=== PATIENT | male | born 1985 ===

== ENCOUNTER 2017-08-02 10:43 | Emergency (ER) | payer OTHER ==
[2017-08-02 10:54] VITALS: BMI 27.7
[2017-08-02 10:55] VITALS: TEMP 98.4
[2017-08-02] MEDS ORDERED: Naproxen 550 mg Tab PO STA (12:25)
[2017-08-02] MEDS ORDERED: Naproxen 550 mg Tab PO ONE (12:33)
--- NOTE | 2017-08-02 12:57 | C.PDOC ---
Time Seen by Provider: 08/02/17 11:57 Chief Complaint (Nursing): Back Pain Past Medical History Reviewed: Historical Data, Nursing Documentation, Vital Signs Vital Signs: Last Vital Signs Temp 98.4 F 08/02/17 10:54 Pulse 73 08/02/17 10:54 Resp 18 08/02/17 10:54 BP 138/74 08/02/17 10:54 Pulse Ox 99 08/02/17 10:54 Family History: States: No Known Family Hx - Social History Hx Alcohol Use: No Hx Substance Use: No - Immunization History Hx Tetanus Toxoid Vaccination: No Hx Influenza Vaccination: No ED Course And Treatment O2 Sat by Pulse Oximetry: 99 Disposition - Disposition - Scribe Statement The provider has reviewed the documentation as recorded by the Scribe (Esther Maria) All medical record entries made by the Scribe were at my direction and personally dictated by me. I have reviewed the chart and agree that the record accurately reflects my personal performance of the history, physical exam, medical decision making, and the department course for this patient. I have also personally directed, reviewed, and agree with the discharge instructions and disposition.
--- NOTE | 2017-08-02 13:01 | C.PDOC ---
History Of Present Illness 31-year-old male, presents to the emergency department with complaints of back and chest pain over the past 2-3 days. Patient reports that he is also experiencing productive blood-tinged cough over the past week. Patients brother notes that he works at a [employer] and lifts heavy objects all day. Denies numbness/weakness, nausea/vomiting, fevers, travel or any other associated symptoms. Time Seen by Provider: 08/02/17 11:57 Chief Complaint (Nursing): Back Pain History Per: Patient History/Exam Limitations: no limitations Onset/Duration Of Symptoms: Intermittent Episodes Current Symptoms Are (Timing): Still Present Recent travel outside of the [place]: No Past Medical History Reviewed: Historical Data, Nursing Documentation, Vital Signs Vital Signs: Last Vital Signs Temp 98.4 F 08/02/17 10:54 Pulse 64 08/02/17 14:07 Resp 16 08/02/17 14:07 BP 115/73 08/02/17 14:07 Pulse Ox 100 08/02/17 14:07 - Medical History PMH: No Chronic Diseases Family History: States: No Known Family Hx - Social History Hx Alcohol Use: No Hx Substance Use: No - Immunization History Hx Tetanus Toxoid Vaccination: No Hx Influenza Vaccination: No Review Of Systems Except As Marked, All Systems Reviewed And Found Negative. Constitutional: Negative for: Fever, Chills, Weakness, Weight loss Cardiovascular: Positive for: Chest Pain Respiratory: Positive for: Cough, Sputum Gastrointestinal: Negative for: Nausea, Vomiting, Abdominal Pain Musculoskeletal: Positive for: Back Pain Neurological: Negative for: Weakness, Numbness, Headache, Dizziness Physical Exam - Physical Exam Appears: Well, Non-toxic, No Acute Distress Skin: Normal Color, Warm, Dry, No Rash Head: Atraumatic, Normacephalic Eye(s): bilateral: Normal Inspection, PERRL, EOMI Nose: Normal Oral Mucosa: Moist Lips: Normal Appearing Throat: No Erythema, No Exudate Neck: Normal ROM, Supple Chest: Symmetrical, No Tenderness, No Ecchymosis, No Subcutaneous Emphysema Cardiovascular: Rhythm Regular, No Friction Rub, No Murmur Respiratory: Normal Breath Sounds, No Accessory Muscle Use, No Rales, No Rhonchi , No Wheezing Gastrointestinal/Abdominal: Soft, No Tenderness, No Guarding, No Rebound Back: Normal Inspection, No CVA Tenderness Extremity: Normal ROM, No Swelling Neurological/Psych: Oriented x3, Normal Speech, Normal Motor Gait: Steady ED Course And Treatment O2 Sat by Pulse Oximetry: 99 (RA) Pulse Ox Interpretation: Normal Medical Decision Making Medical Decision Making: Plan: * Chest X-Ray * Naproxen, Flexeril * XR LS Spine * Reassess and Disposition CXR is negative with no signs of TB or PTX. On re-exam, the patient reports improvement of symptoms. Lungs are CTA, heart is RRR, abdomen is soft, non-tender and is tolerating PO well. Ambulatory in the ED with steady gait. Follow up with the medical doctor within 1-2 days without fail. Return if worsened. Disposition - Disposition Referrals: [facility] [Outside] Disposition: HOME/ ROUTINE Disposition Time: 13:52 Condition: GOOD Additional Instructions: Follow up with the medical doctor within 1-2 days without fail. Return if worsened. Prescriptions: Cyclobenzaprine [Cyclobenzaprine HCl] 10 mg PO BID #14 tab Naproxen [Naprosyn] 500 mg PO BID #20 tab predniSONE [Prednisone] 20 mg PO BID #10 tab Instructions: Muscle Spasms (DC) Forms: [facility] [facility] (Thai), Work Excuse Print Language: VIETNAMESE - Clinical Impression Clinical Impression: Cough with hemoptysis, Back spasm - Scribe Statement The provider has reviewed the documentation as recorded by the Scribe (Esther Maria) All medical record entries made by the Scribe were at my direction and personally dictated by me. I have reviewed the chart and agree that the record accurately reflects my personal performance of the history, physical exam, medical decision making, and the department course for this patient. I have also personally directed, reviewed, and agree with the discharge instructions and disposition.
--- NOTE | 2017-08-02 13:03 | RAD ---
HISTORY: cough up blood COMPARISON: None available. TECHNIQUE: Chest PA and lateral FINDINGS: LUNGS: No focal consolidation. Please note that chest x-ray has limited sensitivity for the detection of pulmonary masses. PLEURA: No significant pleural effusion identified. No definite pneumothorax . CARDIOVASCULAR: Heart size appears within normal limits. OSSEOUS STRUCTURES: No acute osseous abnormality identified. VISUALIZED UPPER ABDOMEN: Unremarkable. OTHER FINDINGS: None. IMPRESSION: No focal consolidation identified.
--- NOTE | 2017-08-02 13:06 | RAD ---
PROCEDURE: Radiographs of the Lumbar Spine. HISTORY: low back pain COMPARISON: None available. FINDINGS: BONES: Alignment appears satisfactory. No listhesis. No acute displaced fracture identified. DISC SPACES: Unremarkable. OTHER FINDINGS: Nonspecific bowel gas pattern. IMPRESSION: No acute displaced fracture or subluxation identified. Nonspecific bowel-gas pattern.
[2017-08-02 14:08] VITALS: BP 115/73; PULSE 64; RESP 16
[2017-08-04 05:42] VITALS: O2SAT 99
== END 2017-08-02 14:08 | disposition home or self-care (01) ==
LOC: C.ER 10:43
DX: R04.2 Hemoptysis (principal); M62.830 Muscle spasm of back